=== PATIENT | male | born 1975 | race Caucasian/White ===

== ENCOUNTER 2019-04-01 19:22 | Emergency (ER) | payer OTHER, SELFPAY ==
[2019-04-01 19:31] VITALS: BP 148/94; PULSE 63; RESP 14; TEMP 36.8; O2SAT 96
--- NOTE | 2019-04-01 19:36 | DI.RAD.S_ITS ---
PROCEDURE: XR CHEST 2V INDICATIONS: cough x 1 month. TECHNIQUE: 2 views of the chest were acquired. COMPARISON: None. FINDINGS: Surgical changes and devices: None. Lungs and pleura: Lungs are clear. No pleural effusions or pneumothorax. Mediastinum: Mediastinal contours are normal. Heart size is normal. Bones and chest wall: No suspicious bony abnormalities. Soft tissues appear unremarkable. IMPRESSION: No acute pulmonary process. Dictated by: Jessa Franco M.D. on 04/01/2019 at 20:13 Approved by: Jessa Franco M.D. on 04/01/2019 at 20:14
--- NOTE | 2019-04-01 20:16 | ED.ARRPALP ---
HPI - Arrhythmia/Palpitations General Chief Complaint: Arrhythmia/Palpitations Stated Complaint: HEART FLUTTERS Time Seen by Provider: 04/01/19 23:35 Source: patient and family Mode of arrival: Ambulatory Limitations: no limitations History of Present Illness HPI narrative: This is a 43-year-old male comes in with complaint of palpitations. Patient was driving his car when he had 3 separate episodes where his heart skipped a beat. He states it felt like his heart sort of lb it against his chest. He will typically have these maybe 1 skipped beat occasionally but not 3 episodes of the same day or even within a couple hours. Patient felt warm but states he was not sweaty he states he did have any chest pressure or pain, he denies any shortness of breath, he denies any nausea no vomiting, no issues with bowel movements. He has had a little bit of a dry cough for months but it has been nonproductive and he has not appreciated any other changes. No syncope or lightheadedness. He takes lisinopril for hypertension although he states he takes it pretty regularly. His dad did have a 2 episode of V-tach and has an AICD in place, and his grandfather of a massive ND at age 50. He has never had a stress test or heart catheterization. He has been told he has a right bundle branch block. He has not had further workup for this although he has been told it would probably be prudent. He has Lasix. No allergies. Occasional cigar, 2 or 3 alcoholic drinks weekly. No illicit. His primary care is in [place]. Related Data Home Medications Medication Instructions Recorded Confirmed No Known Home Medications 04/22/18 04/22/18 Allergies Allergy/AdvReac Type Severity Reaction Status Date / Time No Known Drug Allergies Allergy Unverified 04/22/18 14:34 Review of Systems Review of Systems ROS Unobtainable: All systems reviewed & are unremarkable except as noted in HPI and below Patient History Medical/Surgical History Medical History (Updated 04/01/19 @ 23:53 by Ginger Villagomez DO) Hypertension (Acute) RBBB (Acute) Social History Smoking Status: Former smoker alcohol intake: current Family/Social History Family History (Updated 04/01/19 @ 23:50 by Ginger Villagomez DO) Father V-tach Grandfather Heart attack Social History Smoking Status: Former smoker alcohol intake: current tobacco type: cigars (rare) alcohol intake frequency: a few times a week Substance Use Type: does not use Exam Narrative Exam Narrative: GENERAL: Alert and oriented x three, well-nourished, well-appearing male in no acute distress. HEENT: Head normocephalic, atraumatic, EOMI, pupils reactive, face symmetric, moist mucous membranes NECK: Supple, full range of motion CARDIOVASCULAR: Regular rate and rhythm without murmurs, rubs or gallops. RESPIRATORY: Breath sounds equal bilaterally, no wheezes rales or rhonchi. ABDOMEN: Soft, nontender. Normoactive bowel sounds all 4 quadrants. No guarding or rebound, rigidity, no mass : No CVA tenderness EXTREMITIES: Normal range of motion, no edema. Neurovascularly intact NEUROLOGICAL: Cranial nerves II through XII grossly intact. Moving all extremities SKIN: Warm, dry, no petechiae, no rashes or lesions. Initial Vital Signs Initial Vital Signs: Vital Signs Temperature 98.2 F 04/01/19 19:31 Pulse Rate 63 04/01/19 19:31 Respiratory Rate 14 04/01/19 19:31 Blood Pressure 148/94 H 04/01/19 19:31 Pulse Oximetry 96 04/01/19 19:31 Course Orders Ordered: ED Orders 04/01/19 19:36 XR chest 2V Stat EKG-12 Lead Stat 04/01/19 19:41 Complete Blood Count AUTO DIFF Stat Comprehensive Metabolic Panel Stat Lipase Stat Magnesium Stat Partial Thromboplastin Time Stat Prothrombin Time INR Stat Troponin & CK Cardiac Panel Stat 04/01/19 22:50 Trop I [Troponin I] Stat Vital Signs Vital signs: Vital Signs - 8 hr 04/01/19 19:31 04/01/19 22:08 04/01/19 22:30 Temperature 98.2 F Pulse Rate 63 58 L 56 L Respiratory Rate 14 18 11 L Blood Pressure 148/94 H Blood Pressure [Left Arm] 139/95 H 142/93 H Pulse Oximetry 96 98 97 MDM - Arrhythmia/Palpitations Lab Data Attestation: I reviewed the patient's lab results. Result diagrams: 04/01/19 19:41 04/01/19 19:41 Labs: Lab Results 04/01/19 04/01/19 04/01/19 Range/Units 19:41 19:41 19:41 WBC 8.4 (4.5-11.0) X10^3/uL RBC 5.32 (4.5-5.9) X10^6/uL Hgb 15.4 (13.5-17.5) g/dL Hct 44.8 (41-53) % MCV 84.2 (80-100) fL MCH 29.0 (26-34) PG MCHC 34.5 (30-36) % RDW 13.5 (11.6-14.8) % Plt Count 222 (150-400) X10^3/uL Neut % (Auto) 36.0 L (50-75) % Lymph % (Auto) 47.9 H (25-40) % [place] % (Auto) 8.3 (3-14) % Eos % (Auto) 6.5 H (2-4) % Baso % (Auto) 1.3 (0-2) % Neut # (Auto) 3000 (6615-7801) /uL Lymph # (Auto) 4000 (4069-8694) /uL [place] # (Auto) 700 (0-900) /uL Eos # (Auto) 500 H (0-450) /uL Baso # (Auto) 100 (0-100) /uL PT 11.2 (10.1-12.7) SECONDS INR 1.0 (0.9-1.3) APTT 33 (26.4-36.2) SECONDS Sodium 143 (137-145) mmol/L Potassium 3.8 (3.4-5.1) mmol/L Chloride 104 (98-107) mmol/L Carbon Dioxide 28 (22-32) mmol/L BUN 18 (9-20) mg/dL Creatinine 0.90 (0.66-1.25) mg/dL Estimated GFR > 60.0 (>60) mL/min BUN/Creatinine Ratio 20.0 (6-22) Glucose 77 (70-100) mg/dL Calcium 10.0 (8.4-10.2) mg/dL Magnesium 1.9 (1.6-2.3) mg/dL Total Bilirubin 0.6 (0.2-1.3) mg/dL AST 52 (17-59) IU/L ALT 89 H (21-72) IU/L Alkaline Phosphatase 42 (38-126) U/L Total Creatine Kinase 332 H (55-170) U/L CK-MB (CK-2) 1.35 (<2.37) ng/mL CK-MB (CK-2) Rel Index 0.4 L (1.5-5.0) % Troponin I < 0.012 (0.01-0.034) ng/mL Total Protein 7.7 (6.3-8.2) g/dL Albumin 4.6 (3.5-5.0) g/dL Globulin 3.1 (1.7-4.1) g/dL Albumin/Globulin Ratio 1.5 (1.0-2.8) Lipase 139 (23-300) U/L 04/01/19 Range/Units 22:50 WBC (4.5-11.0) X10^3/uL RBC (4.5-5.9) X10^6/uL Hgb (13.5-17.5) g/dL Hct (41-53) % MCV (80-100) fL MCH (26-34) PG MCHC (30-36) % RDW (11.6-14.8) % Plt Count (150-400) X10^3/uL Neut % (Auto) (50-75) % Lymph % (Auto) (25-40) % [place] % (Auto) (3-14) % Eos % (Auto) (2-4) % Baso % (Auto) (0-2) % Neut # (Auto) (9769-7187) /uL Lymph # (Auto) (6314-4803) /uL [place] # (Auto) (0-900) /uL Eos # (Auto) (0-450) /uL Baso # (Auto) (0-100) /uL PT (10.1-12.7) SECONDS INR (0.9-1.3) APTT (26.4-36.2) SECONDS Sodium (137-145) mmol/L Potassium (3.4-5.1) mmol/L Chloride (98-107) mmol/L Carbon Dioxide (22-32) mmol/L BUN (9-20) mg/dL Creatinine (0.66-1.25) mg/dL Estimated GFR (>60) mL/min BUN/Creatinine Ratio (6-22) Glucose (70-100) mg/dL Calcium (8.4-10.2) mg/dL Magnesium (1.6-2.3) mg/dL Total Bilirubin (0.2-1.3) mg/dL AST (17-59) IU/L ALT (21-72) IU/L Alkaline Phosphatase (38-126) U/L Total Creatine Kinase (55-170) U/L CK-MB (CK-2) (<2.37) ng/mL CK-MB (CK-2) Rel Index (1.5-5.0) % Troponin I < 0.012 (0.01-0.034) ng/mL Total Protein (6.3-8.2) g/dL Albumin (3.5-5.0) g/dL Globulin (1.7-4.1) g/dL Albumin/Globulin Ratio (1.0-2.8) Lipase (23-300) U/L Imaging Data Chest x-ray: Radiologist's impression: [address] [address] XRay Report Signed Patient: Jose Bennett GMR#: [id number] : 1975Acct:[id number] Age/Sex: 43 / MDate of Service: 04/01/19 Loc: ED Accession Number: [id number] Procedure: XR chest 2V Ordering Provider: Ginger Villagomez D.O. PROCEDURE: XR CHEST 2V INDICATIONS: cough x 1 month. TECHNIQUE: 2 views of the chest were acquired. COMPARISON: None. FINDINGS: Surgical changes and devices: None. Lungs and pleura: Lungs are clear. No pleural effusions or pneumothorax. Mediastinum: Mediastinal contours are normal. Heart size is normal. Bones and chest wall: No suspicious bony abnormalities. Soft tissues appear unremarkable. IMPRESSION: No acute pulmonary process. Dictated by: Jessa Franco M.D. on 04/01/2019 at 20:13 Approved by: Jessa Franco M.D. on 04/01/2019 at 20:14 ECG Data Attestation: I personally reviewed and interpreted this ECG as follows: Prior ECG tracings: not available for review Interpretation: Sinus rhythm rate of 61 P are 176 QRS 147 QTC of 413. Patient has right bundle branch block, left anterior fascicular block. Patient has no prior MDM Narrative Medical decision making narrative: Patient's labs show no acute changes, EKG shows right bundle branch, patient is aware of this and confirmed that he has 1. Chest x-ray shows no acute findings. He had several single beats Um today without any other symptoms other than feeling warm. Suspicion for AA significant cardiac abnormality is low but I do think that he would benefit from Holter ZIO patch as well as echo. He has had discussions in the past remotely about having this done any does have a family history that is significant. Discharge Plan Departure Patient Disposition: Home Clinical Impression: Heart palpitations Discharge Date/Time: 04/02/19 00:00 Instructions: DI for Palpitations Activity Restrictions/Additional Instructions: Follow-up with primary care in the next 2-3 days, call Thursday morning for an appointment. I would recommend discussing with them getting a Holter monitor or ZIO patch. I would also discussed about getting an echo with her family history an EKG showing right bundle branch block feel this would be appropriate. You may return at any time for re-evaluation if you have recurrent symptoms, persistent palpitations, new chest pain, shortness of breath, lightheadedness or passing out, persistent nausea or vomiting, diaphoresis, new swelling of her lower extremities or other new or concerning symptoms. Prescriptions: No Action No Known Home Medications RF: 0
[2019-04-01 20:22] LABS: Add Manual Diff / Slide Review NO; Basophils Absolute Auto 100 /uL (0-100); Basophils Percent Auto 1.3 % (0-2); Eosinophils Absolute Auto 500 /uL (0-450); Eosinophils Percent Auto 6.5 % (2-4); Hematocrit 44.8 % (41-53); Hemoglobin 15.4 g/dL (13.5-17.5); Lymphocytes Absolute Auto 4000 /uL (1100-4500); Lymphocytes Percent Auto 47.9 % (25-40); Mean Corpuscular HGB Conc 34.5 % (30-36); Mean Corpuscular Volume 84.2 fL (80-100); Monocytes Absolute Auto 700 /uL (0-900); Monocytes Percent Auto 8.3 % (3-14); Neutrophils Absolute Auto 3000 /uL (1500-7000); Platelet Count 222 X10^3/uL (150-400); Red Blood Cell Count 5.32 X10^6/uL (4.5-5.9); Red Cell Distribution Width 13.5 % (11.6-14.8); White Blood Cell Count 8.4 X10^3/uL (4.5-11.0)
[2019-04-01 20:35] LABS: Alanine Aminotransferase 89 IU/L (21-72); Albumin 4.6 g/dL (3.5-5.0); Albumin Globulin Ratio 1.5 (1.0-2.8); Alkaline Phosphatase 42 U/L (38-126); Aspartate Aminotransferase 52 IU/L (17-59); Bilirubin Total 0.6 mg/dL (0.2-1.3); Blood Urea Nitrogen 18 mg/dL (9-20); Carbon Dioxide 28 mmol/L (22-32); Chloride 104 mmol/L (98-107); Creatine Kinase 332 U/L (55-170); Estimated Glomerular Filt Rate > 60.0 mL/min (>60); Globulin 3.1 g/dL (1.7-4.1); Glucose 77 mg/dL (70-100); HEMOLYSIS < 15 (0-50); Lipase 139 U/L (23-300); Magnesium 1.9 mg/dL (1.6-2.3); Potassium 3.8 mmol/L (3.4-5.1); Sodium 143 mmol/L (137-145); Total Protein 7.7 g/dL (6.3-8.2)
[2019-04-01 20:47] LABS: Troponin I < 0.012 ng/mL (0.01-0.034)
[2019-04-01 20:51] LABS: CKMB % Relative Index 0.4 % (1.5-5.0); Creatine Kinase MB 1.35 ng/mL (<2.37)
[2019-04-01 20:59] LABS: Prothrombin Time 11.2 SECONDS (10.1-12.7)
[2019-04-01 21:02] LABS: PTT Partial Thromboplastin Tim 33 SECONDS (26.4-36.2)
--- NOTE | 2019-04-01 21:51 | PC.NURSE ---
He denies any pain or sob.Updated on wait.
[2019-04-01 22:08] VITALS: BP 139/95; PULSE 58; RESP 18; O2SAT 98
[2019-04-01 22:30] VITALS: BP 142/93; PULSE 56; RESP 11; O2SAT 97
[2019-04-01 23:00] VITALS: BP 121/81; PULSE 57; RESP 17; O2SAT 97
[2019-04-01 23:19] LABS: Troponin I < 0.012 ng/mL (0.01-0.034)
--- NOTE | 2019-04-01 23:36 | ED.ARRPALP ---
HPI - Arrhythmia/Palpitations General Chief Complaint: Arrhythmia/Palpitations Stated Complaint: HEART FLUTTERS Time Seen by Provider: 04/01/19 23:35 Source: patient Mode of arrival: Ambulatory Limitations: no limitations Related Data Home Medications Medication Instructions Recorded Confirmed No Known Home Medications 04/22/18 04/22/18 Allergies Allergy/AdvReac Type Severity Reaction Status Date / Time No Known Drug Allergies Allergy Unverified 04/22/18 14:34 Patient History Medical/Surgical History Medical History (Updated 04/01/19 @ 23:53 by Ginger Villagomez DO) Hypertension (Acute) RBBB (Acute) Social History Smoking Status: Former smoker alcohol intake: current Family/Social History Family History (Updated 04/01/19 @ 23:50 by Ginger Villagomez DO) Father V-tach Grandfather Heart attack Social History Smoking Status: Former smoker alcohol intake: current tobacco type: cigarettes alcohol intake frequency: 0-2 drinks per day Substance Use Type: does not use Exam Initial Vital Signs Initial Vital Signs: Vital Signs Temperature 98.2 F 04/01/19 19:31 Pulse Rate 63 04/01/19 19:31 Respiratory Rate 14 04/01/19 19:31 Blood Pressure 148/94 H 04/01/19 19:31 Pulse Oximetry 96 04/01/19 19:31 Course Orders Ordered: ED Orders 04/01/19 19:36 XR chest 2V Stat EKG-12 Lead Stat 04/01/19 19:41 Complete Blood Count AUTO DIFF Stat Comprehensive Metabolic Panel Stat Lipase Stat Magnesium Stat Partial Thromboplastin Time Stat Prothrombin Time INR Stat Troponin & CK Cardiac Panel Stat 04/01/19 22:50 Trop I [Troponin I] Stat Vital Signs Vital signs: Vital Signs - 8 hr 04/01/19 19:31 04/01/19 22:08 04/01/19 22:30 Temperature 98.2 F Pulse Rate 63 58 L 56 L Respiratory Rate 14 18 11 L Blood Pressure 148/94 H Blood Pressure [Left Arm] 139/95 H 142/93 H Pulse Oximetry 96 98 97 MDM - Arrhythmia/Palpitations Lab Data Attestation: I reviewed the patient's lab results. Result diagrams: 04/01/19 19:41 04/01/19 19:41 Labs: Lab Results 04/01/19 04/01/19 04/01/19 Range/Units 19:41 19:41 19:41 WBC 8.4 (4.5-11.0) X10^3/uL RBC 5.32 (4.5-5.9) X10^6/uL Hgb 15.4 (13.5-17.5) g/dL Hct 44.8 (41-53) % MCV 84.2 (80-100) fL MCH 29.0 (26-34) PG MCHC 34.5 (30-36) % RDW 13.5 (11.6-14.8) % Plt Count 222 (150-400) X10^3/uL Neut % (Auto) 36.0 L (50-75) % Lymph % (Auto) 47.9 H (25-40) % [place] % (Auto) 8.3 (3-14) % Eos % (Auto) 6.5 H (2-4) % Baso % (Auto) 1.3 (0-2) % Neut # (Auto) 3000 (1368-1829) /uL Lymph # (Auto) 4000 (1017-4885) /uL [place] # (Auto) 700 (0-900) /uL Eos # (Auto) 500 H (0-450) /uL Baso # (Auto) 100 (0-100) /uL PT 11.2 (10.1-12.7) SECONDS INR 1.0 (0.9-1.3) APTT 33 (26.4-36.2) SECONDS Sodium 143 (137-145) mmol/L Potassium 3.8 (3.4-5.1) mmol/L Chloride 104 (98-107) mmol/L Carbon Dioxide 28 (22-32) mmol/L BUN 18 (9-20) mg/dL Creatinine 0.90 (0.66-1.25) mg/dL Estimated GFR > 60.0 (>60) mL/min BUN/Creatinine Ratio 20.0 (6-22) Glucose 77 (70-100) mg/dL Calcium 10.0 (8.4-10.2) mg/dL Magnesium 1.9 (1.6-2.3) mg/dL Total Bilirubin 0.6 (0.2-1.3) mg/dL AST 52 (17-59) IU/L ALT 89 H (21-72) IU/L Alkaline Phosphatase 42 (38-126) U/L Total Creatine Kinase 332 H (55-170) U/L CK-MB (CK-2) 1.35 (<2.37) ng/mL CK-MB (CK-2) Rel Index 0.4 L (1.5-5.0) % Troponin I < 0.012 (0.01-0.034) ng/mL Total Protein 7.7 (6.3-8.2) g/dL Albumin 4.6 (3.5-5.0) g/dL Globulin 3.1 (1.7-4.1) g/dL Albumin/Globulin Ratio 1.5 (1.0-2.8) Lipase 139 (23-300) U/L 04/01/19 Range/Units 22:50 WBC (4.5-11.0) X10^3/uL RBC (4.5-5.9) X10^6/uL Hgb (13.5-17.5) g/dL Hct (41-53) % MCV (80-100) fL MCH (26-34) PG MCHC (30-36) % RDW (11.6-14.8) % Plt Count (150-400) X10^3/uL Neut % (Auto) (50-75) % Lymph % (Auto) (25-40) % [place] % (Auto) (3-14) % Eos % (Auto) (2-4) % Baso % (Auto) (0-2) % Neut # (Auto) (9778-5093) /uL Lymph # (Auto) (4682-7555) /uL [place] # (Auto) (0-900) /uL Eos # (Auto) (0-450) /uL Baso # (Auto) (0-100) /uL PT (10.1-12.7) SECONDS INR (0.9-1.3) APTT (26.4-36.2) SECONDS Sodium (137-145) mmol/L Potassium (3.4-5.1) mmol/L Chloride (98-107) mmol/L Carbon Dioxide (22-32) mmol/L BUN (9-20) mg/dL Creatinine (0.66-1.25) mg/dL Estimated GFR (>60) mL/min BUN/Creatinine Ratio (6-22) Glucose (70-100) mg/dL Calcium (8.4-10.2) mg/dL Magnesium (1.6-2.3) mg/dL Total Bilirubin (0.2-1.3) mg/dL AST (17-59) IU/L ALT (21-72) IU/L Alkaline Phosphatase (38-126) U/L Total Creatine Kinase (55-170) U/L CK-MB (CK-2) (<2.37) ng/mL CK-MB (CK-2) Rel Index (1.5-5.0) % Troponin I < 0.012 (0.01-0.034) ng/mL Total Protein (6.3-8.2) g/dL Albumin (3.5-5.0) g/dL Globulin (1.7-4.1) g/dL Albumin/Globulin Ratio (1.0-2.8) Lipase (23-300) U/L ECG Data Attestation: I personally reviewed and interpreted this ECG as follows: Prior ECG tracings: available for review Interpretation: Sinus rhythm right bundle branch block, left anterior fascicular block. Rate of 61 P are 176 QRS 147 QTC of 413. Patient does appear to have some J-point elevation in V1 V2 with RSR. No other acute changes appreciated. Patient does have a Q-wave in aVL. Nonspecific change Discharge Plan Departure Patient Disposition: Home Clinical Impression: Heart palpitations Discharge Date/Time: 04/02/19 00:00 Instructions: DI for Palpitations Activity Restrictions/Additional Instructions: Follow-up with primary care in the next 2-3 days, call Thursday for an appointment. I would recommend discussing with them getting a Holter monitor or ZIO patch. I would also discussed about getting an echo with her family history an EKG showing right bundle branch block feel this would be appropriate. You may return at any time for re-evaluation if you have recurrent symptoms, persistent palpitations, new chest pain, shortness of breath, lightheadedness or passing out, persistent nausea or vomiting, diaphoresis, new swelling of her lower extremities or other new or concerning symptoms. Prescriptions: No Action No Known Home Medications RF: 0
[2019-04-01 23:48] VITALS: BP 115/80; PULSE 58; RESP 17; O2SAT 97
[2019-04-01 23:58] VITALS: BP 115/80; PULSE 56; RESP 10; O2SAT 97
== END 2019-04-02 | disposition home or self-care (01) ==
PROVIDERS: Emergency Provider Emergency Medicine
DX: R00.2 Palpitations (principal); R05 Cough
CPT/HCPCS: 36415; 71046; 80053; 82550; 82553; 83690; 83735; 84484; 85025; 85610; 85730; 93005; 99283; 99285

== ENCOUNTER 2023-07-14 12:04 | Day surgery (SDC) | payer OTHER, SELFPAY ==
[2023-07-09 13:22] VITALS: BMI 30.6
[2023-07-14] VITALS (7 sets, daily range): BP systolic 114–146; BP diastolic 63–94; PULSE 62–85; RESP 12–23; TEMP 36.5–36.6; O2SAT 94–98; BMI 29.9
--- NOTE | 2023-07-14 | PATH_ITS ---
[facility] Accession Number: [id number] No. of containers..01 Tissue . 01 Material submitted: . scalp - RIGHT SCALP . 01 Diagnosis: Right Scalp, Excision: Mature fibroadipose tissue, consistent with lipoma. ORIANA 07/17/2023 0918 Local . 01 Electronically signed: . Mynor Dhillon MD, Dermatopathologist NPI- [id number] . 01 Gross description: . The specimen is received in formalin labeled with the patient's name, , and right scalp lipoma, and consists of a yellow to pink, lobulated soft tissue fragment measuring 5.2 x 4.1 x 2.2 cm. The specimen is inked green, and sectioning reveals a yellow, soft, homogeneous cut surface. [employer] sections are submitted in cassettes A1-A2. ([id number]) /ORIANA 07/15/2023 1144 Local . 01 Pathologist provided ICD-10: D17.9 . 01 CPT . 882046 Specimen Comment: A courtesy copy of this report has been sent to [phone] Performed at: 01 [facility] [address] [place] [address] [id number] MD Slick Benavidez MD Phone: [phone]
[2023-07-14] MEDS: LACTATED RINGERS 1,000 ML 42 ML IV ×2 (12:34→14:50)
--- NOTE | 2023-07-14 13:04 | PM.PREOP ---
Pre-operative Note COVID-19 COVID-19 status: Not tested Interval Note History & Physical reviewed/Exam performed by Physician: Yes Changes to H&P: No ASA Class (for procedural sedation): II
--- NOTE | 2023-07-14 13:51 | SUR.OPER ---
Lateral on a duval bag, head on pillow, gel axillary roll in place, bottom leg bent with gel pad under knee to foot, upper leg straight and supported with pillows. Upper arm supported by pillows and secured over bottom arm to padded arm board. Safety belt at hip, tape over blanket lower legs.
[2023-07-14] MEDS: LIDOCAINE 1% W/EPI 20 ML INJ (13:55)
[2023-07-14] MEDS: BUPIVACAINE 0.25% (PF) VIAL 30 ML INJ (13:56)
--- NOTE | 2023-07-14 14:56 | PM.OP.1 ---
Operative Date/Time/Diagnoses Date of procedure: 07/14/23 Time of procedure: 14:56 Pre-op diagnosis: Right posterior auricular scalp mass Post-op diagnosis: same Procedure & Clinicians Procedure: Excisional biopsy right posterior auricular subcutaneous scalp mass Same procedure as scheduled: Yes Surgeon: Jose Frankel Operative Notes Procedure in detail: The patient is a 47-year-old man who had a lipomatous mass of the right posterior auricular scalp that had been growing. He desired removal. The patient was brought to the operating room and placed on the table in the supine position. General anesthesia was induced with LMA. The patient was then positioned in the left lateral decubitus position using a beanbag. The right posterior auricular scalp was prepped draped in the usual fashion and a time-out was performed. The mass was approximately 8 x 10 cm. After injecting lidocaine with epinephrine we made a 10 cm incision over the mass. Mass appeared to be a lipoma. It was quite fixed to the fascia overlying superior portion of the right sternocleidomastoid muscle. A few bleeders were cauterized. Eventually the mass was freed from the surrounding tissues and removed EN bloc. Additional local was injected into the fascia and muscle. The wound was then irrigated. The wound was then closed in layers using multiple interrupted 3-0 Vicryl dermal sutures and a running 4-0 Monocryl subcuticular stitch. Steri-Strips and a gauze were applied over the wound. EBL: 10 mL Specimen: Right posterior auricular scalp lipoma Post-operative Condition: stable Disposition: PACU
[2023-07-14] MEDS: ACETAMINOPHEN 325 MG TABLET 975 MG PO (15:20)
== END 2023-07-14 15:40 | disposition home or self-care (01) ==
PROVIDERS: PCP Physician Assistant; Referring Provider Surgery; Visit Provider Surgery
PROC: (CPT 21012; principal; 2023-07-14 13:45)
DX: D17.0 Benign lipomatous neoplasm of skin and subcutaneous tissue of head, face and neck (principal)
CPT/HCPCS: 21012; J1100; J2250; J2405; J2704; J3010

== ENCOUNTER 2024-09-06 05:42 | Emergency (ER) | payer OTHER, SELFPAY ==
[2024-09-06] VITALS (9 sets, daily range): BP systolic 147–173; BP diastolic 96–117; PULSE 58–89; RESP 18; TEMP 36.6; O2SAT 96–99; BMI 29.9
--- NOTE | 2024-09-06 05:59 | ED_ITS ---
HPI - Back Pain/Injury <Maribeth Robles DO - Last Filed: 09/12/24 08:15> General Chief Complaint: Back Pain/Injury Stated Complaint: back pain, sciatica Time Seen by Provider: 09/06/24 05:58 Source: patient History of Present Illness HPI Narrative: Patient is a healthy 40-year-old male history of hypertension presenting today with worsening right leg pain and weakness. He says that over the last 3 months he has had ongoing back pain with radiation down his leg. It is progressively getting worse and worse. Pain comes and goes kind of pins on position. But he sometimes has difficulty walking. This morning he woke up a small amount of urinary incontinence. Does not sound like it was excessive. He has numbness down the lateral side of his leg not necessarily medial thigh. He does not have a primary care provider wrong referrals have been made he has yet to see any sort of specialist he has not had any imaging in 2 years. He has an appointment for pain management coming. He takes Tylenol Motrin at home. 40 he reports severe pain when he woke but now lying in his position he has none. Related Data Home Medications Medication Instructions Recorded Confirmed lisinopril 10 mg tablet 10 mg PO DAILY 07/14/23 07/14/23 Previous Rx's Medication Instructions Recorded baclofen 20 mg tablet 20 mg PO TID PRN pain (scale score 09/06/24 4-6) #20 tabs methylprednisolone 4 mg tablets in See Rx Instructions PO .COMPLEX 09/06/24 a dose pack (Medrol (Palomo)) #21 ea Allergies Allergy/AdvReac Type Severity Reaction Status Date / Time No Known Drug Allergies Allergy Unverified 07/29/23 16:02 Review of Systems <Hi Regalado MD - Last Filed: 09/07/24 07:45> Review of Systems Narrative: GENERAL: Negative chills, fatigue, malaise, fever, sweats. HEENT: Negative sinus pain, ear pain, sore throat RESPIRATORY: Negative dyspnea, cough CARDIOVASCULAR: Negative chest pain, palpitations GASTROINTESTINAL: Negative vomiting, nausea, abdominal pain : Negative dysuria, frequency, hematuria, positive urinary incontinence MUSCULOSKELETAL: Positive muscle or bony pain SKIN: Negative rash, skin lesions NEUROLOGIC: Negative weakness, positive leg numbness ROS Unobtainable: All systems reviewed & are unremarkable except as noted in HPI and below Patient History <Maribeth Robles DO - Last Filed: 09/12/24 08:15> Medical History Back pain RBBB Hypertension Surgical History Hx of LASIK Family History Father V-tach Hypertension Grandfather Heart attack Mother Hypertension Gallstones Social History marital status: household members: spouse lives independently: Yes occupational status: employed Smoking Status: Former smoker alcohol intake: current Smoking Status: Former smoker tobacco type: cigars alcohol intake frequency: a few times a week Exam <Maribeth Robles DO - Last Filed: 09/12/24 08:15> Initial Vital Signs Initial Vital Signs: Vital Signs Temperature 97.9 F 09/06/24 05:50 Pulse Rate 80 09/06/24 05:50 Respiratory Rate 18 09/06/24 05:50 Blood Pressure 173/117 H 09/06/24 05:50 Pulse Oximetry 97 09/06/24 05:50 Oxygen Delivery Method Room Air 09/06/24 05:50 GENERAL: Well-appearing, well-nourished and in no acute distress. CARDIOVASCULAR: peripheral pulses in tact, cap refill <2 sec RESPIRATORY: No respiratory distress, speaks in full sentences without difficulty BACK: Midline tenderness L4-L5 region decreased sensation lateral right leg sensation medial intact medial thigh sensation intact EXTREMITIES: Normal range of motion, no clubbing or edema. Neurovascularly intact NEUROLOGICAL: Cranial nerves II through XII grossly intact. Normal gait and speech. SKIN: Warm, dry, no petechiae, no rashes or lesions. <Hi Regalado MD - Last Filed: 09/07/24 07:45> Initial Vital Signs Initial Vital Signs: Vital Signs Temperature 97.9 F 09/06/24 05:50 Pulse Rate 80 09/06/24 05:50 Respiratory Rate 18 09/06/24 05:50 Blood Pressure 173/117 H 09/06/24 05:50 Pulse Oximetry 97 09/06/24 05:50 Oxygen Delivery Method Room Air 09/06/24 05:50 Course <Maribeth Robles DO - Last Filed: 09/12/24 08:15> Orders Ordered: ED Orders 09/06/24 06:14 MR lumbar spine wo con Stat Vital Signs Vital signs: Vital Signs - 8 hr 09/06/24 05:50 09/06/24 08:54 09/06/24 08:54 Temperature 97.9 F Pulse Rate 80 63 Respiratory Rate 18 Blood Pressure 173/117 H 167/96 H Pulse Oximetry 97 99 Oxygen Delivery Method Room Air 09/06/24 09:00 09/06/24 09:01 09/06/24 09:01 Temperature Pulse Rate 58 L 58 L Respiratory Rate Blood Pressure 147/97 H Pulse Oximetry 96 96 Oxygen Delivery Method 09/06/24 09:30 09/06/24 09:30 09/06/24 10:00 Temperature Pulse Rate 66 Respiratory Rate Blood Pressure 152/102 H 147/97 H Pulse Oximetry 97 Oxygen Delivery Method 09/06/24 10:00 09/06/24 10:57 09/06/24 10:58 Temperature Pulse Rate 70 89 Respiratory Rate Blood Pressure 168/111 H Pulse Oximetry 98 98 Oxygen Delivery Method 09/06/24 10:58 09/06/24 11:00 09/06/24 11:00 Temperature Pulse Rate 80 72 Respiratory Rate Blood Pressure 163/105 H Pulse Oximetry 98 97 Oxygen Delivery Method Room Air <Hi Regalado MD - Last Filed: 09/07/24 07:45> Orders Ordered: ED Orders 09/06/24 06:14 MR lumbar spine wo con Stat Vital Signs Vital signs: Vital Signs - 8 hr 09/06/24 05:50 09/06/24 08:54 09/06/24 08:54 Temperature 97.9 F Pulse Rate 80 63 Respiratory Rate 18 Blood Pressure 173/117 H 167/96 H Pulse Oximetry 97 99 Oxygen Delivery Method Room Air 09/06/24 09:00 09/06/24 09:01 09/06/24 09:01 Temperature Pulse Rate 58 L 58 L Respiratory Rate Blood Pressure 147/97 H Pulse Oximetry 96 96 Oxygen Delivery Method 09/06/24 09:30 09/06/24 09:30 09/06/24 10:00 Temperature Pulse Rate 66 Respiratory Rate Blood Pressure 152/102 H 147/97 H Pulse Oximetry 97 Oxygen Delivery Method 09/06/24 10:00 09/06/24 10:57 09/06/24 10:58 Temperature Pulse Rate 70 89 Respiratory Rate Blood Pressure 168/111 H Pulse Oximetry 98 98 Oxygen Delivery Method 09/06/24 10:58 09/06/24 11:00 09/06/24 11:00 Temperature Pulse Rate 80 72 Respiratory Rate Blood Pressure 163/105 H Pulse Oximetry 98 97 Oxygen Delivery Method Room Air MDM - Back Pain/Injury <Maribeth Robles DO - Last Filed: 09/12/24 08:15> Lab Data Labs: Urine Dip Bedside Urine Glucose Negative Bedside Urine Bilirubin - Negative Bedside Urine Ketone - Negative Urine Specific Cheney 1.020 Bedside Urine Occult Blood - Negative Bedside Urine pH 6.0 Bedside Urine Protein - Negative Bedside Urine Urobilinogen - Negative Bedside Urine Nitrite - Negative Bedside Urine Leukocytes - Negative Esterase MDM Narrative Medical decision making narrative: Patient 40-year-old male who has ongoing worsening right back pain was worsening right leg weakness and some mild urinary incontinence. He has not had any injections history of diabetes he has not had any sort of fever. Patient has not had any imaging he has very poor follow-up. Will get MRI to help patient get appropriate care and follow up. Patient signed out to Dr. Regalado <Hi Regalado MD - Last Filed: 09/07/24 07:45> Lab Data Labs: Urine Dip Bedside Urine Glucose Negative Bedside Urine Bilirubin - Negative Bedside Urine Ketone - Negative Urine Specific [place] 1.020 Bedside Urine Occult Blood - Negative Bedside Urine pH 6.0 Bedside Urine Protein - Negative Bedside Urine Urobilinogen - Negative Bedside Urine Nitrite - Negative Bedside Urine Leukocytes - Negative Esterase Imaging Data MRI lumbar spine: Radiologist's Impression: [address] [address] Magnetic Resonance Report Signed Patient: Jose Bennett MR#: [id number] : 1975 Acct:[id number] Age/Sex: 48 / M Date of Service: 09/06/24 Loc: ED Accession Number: [id number] Procedure: MR lumbar spine wo con Ordering Provider: Maribeth Robles D.O. PROCEDURE: MR LUMBAR SPINE WO CON INDICATIONS: right leg weakness with urinary incontinence TECHNIQUE: Noncontrast sagittal T1 spin echo and T2 fast echo, sagittal STIR, and T2 fast spin echo through the lumbar spine. In cases with scoliosis, additional coronal T2 fast spin echo may be performed. COMPARISON: None. FINDINGS: Image quality: Excellent. Alignment and Curvature: There is straightening of normal lumbar lordosis. Bone Marrow: No marrow edema. No acute vertebral body compression fractures. Spinal Cord: Conus medullaris terminates at the L1 level. Visualized cord demonstrates normal signal and size. Paraspinous Soft Tissues: No paravertebral masses. T12-L1: Normal appearance. L1-L2: Normal appearance. L2-L3: Normal appearance. L3-L4: Normal appearance. L4-L5: Disc desiccation and loss of disc height. Broad-based disc bulge and superimposed central disc herniation. Bilateral facet arthrosis is also seen. There is moderate central canal stenosis, moderate to severe right neural recess narrowing and moderate bilateral neural foraminal narrowing. Herniated disc is seen impinging on right L3 and L4 nerve roots. L5-S1: Normal appearance. IMPRESSION: 1. Broad-based disc bulge and bilateral facet arthrosis with superimposed central to right-sided disc herniation at L4-5 level causing severe narrowing of right neural recess and moderate bilateral neural foraminal as well as [id number] central canal stenosis. There is impingement of right L4 on L5 nerve roots. 2. No marrow edema. No acute compression fracture or significant s pondylolisthesis. Dictated by: Yasmani Rush M.D. on 09/06/2024 at 10:57 Approved by: Yasmani Rush M.D. on 09/06/2024 at 11:05 [facility] Narrative Medical decision making narrative: Patient 40-year-old male who has ongoing worsening right back pain was worsening right leg weakness and some mild urinary incontinence. He has not had any injections history of diabetes he has not had any sort of fever. Patient has not had any imaging he has very poor follow-up. Will get MRI to help patient get appropriate care and follow up. Patient signed out to Dr. Regalado September 06, 2024 at 7:00 a.m.. Fabricio: sign out from Dr Robles , patient in no distress. Not requiring any medications at this time. Neurologically intact. No blood work or other imaging indicated. Has low risk factors for infection or dissection. MRI of spine is pending. 7:30 a.m.. Introduced myself to patient and . Patient in no distress at this time and agrees for MRI of the lower back. MRI lumbar spine without contrast shows needed/bulging disc at L4 L5 11:28 a.m.. Spoke with [facility], ortho spine Dr. Hi price, he has reviewed imaging MRI from today. Patient has seen pain specialist Dr. Mercado, at [facility] for epidurals. Dr. Price we will see patient in the office. He does agree patient can have Medrol Dosepak. Patient is on Neurontin already. 11:35 a.m.. Updated patient and results and my discussion with ortho spine. They are happy to follow up with Dr. Price. Blood pressure noted. He states his blood pressure goes up because of the pain. However when he is relaxed it goes back to baseline. He is on blood pressure medication. He will follow up with primary care for re-evaluation of his blood pressure medications. Return precautions reviewed. They desire discharge home. He states he has had back pain for over 5 years. Never had surgery on it. He states he has had pain and tingling to the right leg. Today/last night had small amount of urinary incontinence. But no bowel or bladder retention. Back pain precautions and return precautions reviewed with him. Any loss control of bowel or bladder or retention or leg weakness to return here. Discharge Plan Departure Patient Disposition: Home Clinical Impression: Acute exacerbation of chronic low back pain Instructions: DI for Low Back Pain Activity Restrictions/Additional Instructions: Please call provided ortho spine provider today at [facility] for follow up appointment in the office for re-evaluation. 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 Please return if worse if any questions or concerns or worsening symptoms. Prescriptions: New baclofen 20 mg tablet 20 mg PO TID PRN (Reason: pain (scale score 4-6)) Qty: 20 0RF methylprednisolone [Medrol (Palomo)] 4 mg tablets,dose pack See Rx Instructions .ROUTE .COMPLEX Qty: 21 0RF Rx Instructions: orally per package directions No Action lisinopril 10 mg tablet 10 mg PO DAILY Referrals: Sara Hernandez PA-C [Primary Care Provider] - Hi Spence MD [Physician] - Stand Alone Forms: Patient Portal/API/Survey
--- NOTE | 2024-09-06 06:14 | DI.MRI.S_ITS ---
PROCEDURE: MR LUMBAR SPINE WO CON INDICATIONS: right leg weakness with urinary incontinence TECHNIQUE: Noncontrast sagittal T1 spin echo and T2 fast echo, sagittal STIR, and T2 fast spin echo through the lumbar spine. In cases with scoliosis, additional coronal T2 fast spin echo may be performed. COMPARISON: None. FINDINGS: Image quality: Excellent. Alignment and Curvature: There is straightening of normal lumbar lordosis. Bone Marrow: No marrow edema. No acute vertebral body compression fractures. Spinal Cord: Conus medullaris terminates at the L1 level. Visualized cord demonstrates normal signal and size. Paraspinous Soft Tissues: No paravertebral masses. T12-L1: Normal appearance. L1-L2: Normal appearance. L2-L3: Normal appearance. L3-L4: Normal appearance. L4-L5: Disc desiccation and loss of disc height. Broad-based disc bulge and superimposed central disc herniation. Bilateral facet arthrosis is also seen. There is moderate central canal stenosis, moderate to severe right neural recess narrowing and moderate bilateral neural foraminal narrowing. Herniated disc is seen impinging on right L3 and L4 nerve roots. L5-S1: Normal appearance. IMPRESSION: 1. Broad-based disc bulge and bilateral facet arthrosis with superimposed central to right-sided disc herniation at L4-5 level causing severe narrowing of right neural recess and moderate bilateral neural foraminal as well as [id number] central canal stenosis. There is impingement of right L4 on L5 nerve roots. 2. No marrow edema. No acute compression fracture or significant spondylolisthesis. Dictated by: Yasmani Rush M.D. on 09/06/2024 at 10:57 Approved by: Yasmani Rush M.D. on 09/06/2024 at 11:05
== END 2024-09-06 11:35 | disposition home or self-care (01) ==
PROVIDERS: Emergency Provider Emergency Medicine; PCP Physician Assistant
DX: M54.50 Low back pain, unspecified (principal); M62.81 Muscle weakness (generalized); R32 Unspecified urinary incontinence
CPT/HCPCS: 72148; 81003; 99282; 99284